=== PATIENT | female | born 1960 ===

== ENCOUNTER 2020-12-24 16:21 | Emergency (ER) | payer OTHER ==
[~2020-12-24] VITALS: Ht 154.9 cm; Wt 81.6 kg
[~2020-12-24 16:21] MED LIST: HYZAAR 100/25 T1 TAB PO; METFORMIN HCL500 MG PO
[2020-12-24] MEDS ORDERED: CARVEDILOL6.25 MG (16:37)
[2020-12-24] MEDS ORDERED: SYNTHROID50 MCG (16:37)
[2020-12-24] MEDS ORDERED: VOTRIENT200 MG (16:38)
== END 2020-12-24 22:15 | disposition home or self-care (01) ==
LOC: ER 16:21
DX: I16.0 Hypertensive urgency (principal); I10 Essential (primary) hypertension

== ENCOUNTER → 2021-04-22 | Emergency (ER) | payer OTHER ==
[~2021-04-22] VITALS: Ht 154.9 cm; Wt 86.2 kg
[~2021-04-22] MED LIST changes: +ACETAMINOPHEN650 M2 PO; +CARVEDILOL6.25 MG; +SYNTHROID50 MCG; +VOTRIENT200 MG
== END | disposition home or self-care (01) ==
LOC: ER 12:32
DX: K52.89 Other specified noninfective gastroenteritis and colitis (principal); U07.1 COVID-19; E86.0 Dehydration

== ENCOUNTER 2021-04-27 08:00 | Outpatient (CLI) | payer OTHER ==
[~2021-04-27 08:00] MED LIST changes: -ACETAMINOPHEN650 M2 PO
== END 2021-04-27 09:00 | disposition home or self-care (01) ==
LOC: ASH CLINIC 08:00
PROVIDERS: ATTEND Emergency Medicine
DX: Z23 Encounter for immunization (principal); U07.1 COVID-19

== ENCOUNTER 2021-04-29 23:34 | Emergency (ER) | payer OTHER ==
[~2021-04-29] VITALS: Ht 157.5 cm; Wt 68.0 kg
[2021-04-30] MEDS ORDERED: ACETAMINOPHEN650 M2 PO (05:30)
== END 2021-04-30 05:43 | disposition home or self-care (01) ==
LOC: ER 23:34
DX: B34.9 Viral infection, unspecified (principal); Z03.818 Encounter for observation for suspected exposure to other biological agents ruled out; R53.81 Other malaise

== ENCOUNTER 2021-09-22 18:35 | Emergency (ER) | payer OTHER ==
[~2021-09-22] VITALS: Ht 154.9 cm; Wt 68.0 kg
[~2021-09-22 18:35] MED LIST changes: +ACETAMINOPHEN650 M2 PO
[2021-09-22] MEDS ORDERED: VITAMIN D3125 MCG PO (18:47)
[2021-09-22] MEDS ORDERED: VITAMIN C1000 MG PO (18:47)
[2021-09-22] MEDS ORDERED: GLIMEPIRIDE2 MG (18:47)
[2021-09-22] MEDS ORDERED: METFORMIN HCL500 M4 PO (18:47)
[2021-09-22] MEDS ORDERED: SYNTHROID75 MCG PO (18:47)
[2021-09-22] MEDS ORDERED: HYZAAR 100-251 EACH PO (18:47)
== END 2021-09-22 21:47 | disposition home or self-care (01) ==
LOC: ER 18:35
DX: K59.09 Other constipation (principal); R10.84 Generalized abdominal pain

== ENCOUNTER 2021-09-26 13:14 | Inpatient (IN) | payer OTHER ==
[~2021-09-26] VITALS: Ht 167.6 cm; Wt 79.8 kg
[~2021-09-26 13:14] MED LIST changes: +GLIMEPIRIDE2 MG; +HYZAAR 100-251 EACH PO; +METFORMIN HCL500 M4 PO; +SYNTHROID75 MCG PO; +VITAMIN C1000 MG PO; +VITAMIN D3125 MCG PO
[2021-09-29] MEDS ORDERED: DOCUSATE SODIU100 MG PO (09:06)
[2021-09-29] MEDS ORDERED: LEVOTHYROXINE150 MCG PO (09:07)
[2021-09-29] MEDS ORDERED: PROTEINEX-18 LI30 ML PO (09:08)
[2021-09-29] MEDS ORDERED: ULTRACET PO (09:10)
== END 2021-09-29 10:49 | disposition home or self-care (01) | DRG 641 ==
LOC: ER 13:14 → SURH 21:14
PROVIDERS: ADMIT Internal Medicine Hematology & Oncology; ATTEND Internal Medicine Hematology & Oncology
PROC: BW21ZZZ Computerized Tomography (CT Scan) of Abdomen and Pelvis (ICD-10-PCS; principal; 2021-09-27)
DX: E86.0 Dehydration (principal); C48.0 Malignant neoplasm of retroperitoneum; C25.9 Malignant neoplasm of pancreas, unspecified; R17 Unspecified jaundice; R10.11 Right upper quadrant pain; E87.8 Other disorders of electrolyte and fluid balance, not elsewhere classified; I10 Essential (primary) hypertension; E03.8 Other specified hypothyroidism; Z79.4 Long term (current) use of insulin; E11.65 Type 2 diabetes mellitus with hyperglycemia; Z20.822 Contact with and (suspected) exposure to COVID-19; E78.49 Other hyperlipidemia

== ENCOUNTER 2021-10-14 23:50 | Inpatient (IN) | payer OTHER ==
[~2021-10-14] VITALS: Ht 154.9 cm; Wt 78.5 kg
[~2021-10-14 23:50] MED LIST changes: +DOCUSATE SODIU100 MG PO; +LEVOTHYROXINE150 MCG PO; +PROTEINEX-18 LI30 ML PO; +ULTRACET PO
[2021-10-17] MEDS ORDERED: SPIRONOLACTONE50 MG PO (17:54)
[2021-10-17] MEDS ORDERED: TRAMADOL HCL50 MG PO (17:55)
[2021-10-17] MEDS ORDERED: FAMOTIDINE20 MG PO (17:56)
[2021-10-17] MEDS ORDERED: LEVOTHYROXINE150 MCG PO (17:56)
[2021-10-17] MEDS ORDERED: DOCUSATE SODIU100 MG PO (17:56)
== END 2021-10-17 19:27 | disposition home or self-care (01) | DRG 844 ==
LOC: ER 23:50 → SURG 10-15 17:55
PROVIDERS: ADMIT Internal Medicine Hematology & Oncology; ATTEND Internal Medicine Hematology & Oncology
PROC: 0W9G30Z Drainage of Peritoneal Cavity with Drainage Device, Percutaneous Approach (ICD-10-PCS; principal; 2021-10-15)
DX: C48.0 Malignant neoplasm of retroperitoneum (principal); C78.00 Secondary malignant neoplasm of unspecified lung; C78.7 Secondary malignant neoplasm of liver and intrahepatic bile duct; R18.8 Other ascites; E87.1 Hypo-osmolality and hyponatremia; E03.8 Other specified hypothyroidism; Z20.822 Contact with and (suspected) exposure to COVID-19

== ENCOUNTER 2021-11-25 11:41 | Inpatient (IN) | payer OTHER ==
[~2021-11-25] VITALS: Ht 152.4 cm; Wt 81.6 kg
[~2021-11-25 11:41] MED LIST changes: +FAMOTIDINE20 MG PO; +SPIRONOLACTONE50 MG PO; +TRAMADOL HCL50 MG PO
[2021-11-25] MEDS ORDERED: METFORMIN HCL500 M3 (12:17)
[2021-11-25] MEDS ORDERED: REGLAN5 MG/5 ML (12:18)
--- NOTE | 2021-11-25 12:25 | NUR ---
SE RECIBE PACIENTE ALERTA Y ORIENTADA X3 QUIEN REFIERE TENER AMBAS PIERNAS HINCHADAS DESDE HACE 2 SEMANAS Y DESDE TONY ESTA ELIMINANDO LIQUIDO ATRAVES DE JESSE. SE MONITOREAN LOS SV Y SE UBICA EN OBSERVACION.
--- NOTE | 2021-11-25 13:40 | NUR ---
SE ORIENTA PTE Y FAMILIAR SOBRE EL TRATAMIENTO ORDENADO POR EL DR PARDEES PTE ALERTA Y ORIENTADO POR 3 SE REALIZAN MUESTRAS DE LABORATORIO Y SE ADMINISTRAN MEDICAMENTOS MARTHA ORDENADO PTE SE MANTIENE EN OBSERVACION Y BAJO TRATAMIENTO.
[2021-12-06] MEDS ORDERED: RESTORIL15 MG PO (09:36)
[2021-12-06] MEDS ORDERED: SENOKOT8.6 M1 PO (09:36)
[2021-12-06] MEDS ORDERED: FENTANYL1 EAC3 TD (09:36)
[2021-12-06] MEDS ORDERED: TUSSIN DM LIQU118 ML PO (09:36)
[2021-12-06] MEDS ORDERED: FAMOTIDINE20 MG PO (09:36)
[2021-12-06] MEDS ORDERED: GYNE-LOTRIMIN45 GM VAG (09:36)
[2021-12-06] MEDS ORDERED: METOCLOPRAMIDE10 MG PO (09:36)
[2021-12-06] MEDS ORDERED: LACTULOSE10 GM/152 PO (09:36)
[2021-12-06] MEDS ORDERED: CARAFATE1 GM PO (09:36)
[2021-12-06] MEDS ORDERED: LEVOTHYROXINE150 MCG PO (09:36)
[2021-12-06] MEDS ORDERED: TRAMADOL HCL50 MG PO (09:36)
[2021-12-06] MEDS ORDERED: METFORMIN HCL500 M3 PO (09:36)
== END 2021-12-06 11:04 | disposition home or self-care (01) | DRG 844 ==
LOC: ER 11:41 → MEDJ 18:13 → SURH 18:13 → SEC-K 20:01 → SURH 20:16
PROVIDERS: ADMIT Internal Medicine Hematology & Oncology; ATTEND Internal Medicine Hematology & Oncology
DX: C48.0 Malignant neoplasm of retroperitoneum (principal); C78.7 Secondary malignant neoplasm of liver and intrahepatic bile duct; C78.00 Secondary malignant neoplasm of unspecified lung; N39.0 Urinary tract infection, site not specified; E86.0 Dehydration; E87.6 Hypokalemia; R60.1 Generalized edema; E61.2 Magnesium deficiency; G89.3 Neoplasm related pain (acute) (chronic); K21.9 Gastro-esophageal reflux disease without esophagitis; K59.09 Other constipation; E03.8 Other specified hypothyroidism; B37.3 Candidiasis of vulva and vagina; Z74.01 Bed confinement status; I10 Essential (primary) hypertension; Z51.5 Encounter for palliative care